=== PATIENT | female | born 1945 | race Caucasian/White ===

== ENCOUNTER 2021-08-13 08:00 | Inpatient (IN) ==
--- NOTE | 2021-02-22 11:54 | PAT Medication Instructions ---
Medication Instructions Date of Service February 22, 2021 Home Medications famotidine 20 mg tablet 20 mg PO QPM levothyroxine 100 mcg capsule 100 mcg PO QAM lisinopril 20 mg tablet 20 mg PO QAM meloxicam 15 mg tablet (Mobic) 15 mg PO QAM metoprolol tartrate 25 mg tablet 25 mg PO QAM pravastatin 40 mg tablet 40 mg PO HS ascorbate calcium-bioflavonoid 1,000 mg-200 mg tablet (Tana-C with Bioflavonoids) 1 tab PO QPM aspirin 81 mg tablet,delayed release 81 mg PO QPM biotin 10,000 mcg capsule 10,000 mcg PO QPM calcium carbonate-vitamin D3 600 mg calcium-200 unit capsule (Calcium 600 + D(3)) 1 cap PO QPM cholecalciferol (vitamin D3) 50 mcg (2,000 unit) capsule (Vitamin D3) 50 mcg PO QAM omega 7-sbd-sdm-fish oil 900 mg-1,400 mg capsule,delayed release 1 cap PO QAM polyethylene glycol 3350 17 gram oral powder packet (Miralax) 17 g PO QPM vitamins A,C,P-hjeh-lteolb 14,320 unit-226 mg-200 unit capsule 1 cap PO QPM ASK your surgeon for instructions meloxicam 15 mg tablet (Mobic) 15 mg PO QAM ASK your prescriber and surgeon aspirin 81 mg tablet,delayed release 81 mg PO QPM STOP taking 2 weeks before surgery vitamins A,C,B-bpxo-hwbkdp 14,320 unit-226 mg-200 unit capsule 1 cap PO QPM omega 5-xgh-atb-fish oil 900 mg-1,400 mg capsule,delayed release 1 cap PO QAM biotin 10,000 mcg capsule 10,000 mcg PO QPM ascorbate calcium-bioflavonoid 1,000 mg-200 mg tablet (Tana-C with Bioflavonoids) 1 tab PO QPM DO NOT take the morning of surgery cholecalciferol (vitamin D3) 50 mcg (2,000 unit) capsule (Vitamin D3) 50 mcg PO QAM lisinopril 20 mg tablet 20 mg PO QAM Take morning of surgery With a small sip of water, OTHERWISE NOTHING TO EAT OR DRINK AFTER MIDNIGHT: metoprolol tartrate 25 mg tablet 25 mg PO QAM levothyroxine 100 mcg capsule 100 mcg PO QAM Take evening before surgery polyethylene glycol 3350 17 gram oral powder packet (Miralax) 17 g PO QPM calcium carbonate-vitamin D3 600 mg calcium-200 unit capsule (Calcium 600 + D(3)) 1 cap PO QPM pravastatin 40 mg tablet 40 mg PO HS famotidine 20 mg tablet 20 mg PO QPM Other Notes If you have any questions please call us at [phone] or [phone] or [phone] or [phone]
--- NOTE | 2021-02-26 13:37 | Anesthesiology Consultation ---
Date of Service February 26, 2021 Assessment & Plan (1) Encounter for pre-operative examination: - Left upper extremity restriction. - Upcoming dental extractions: Extraction of several teeth next week-pt states surgeon's office is aware and advised her can proceed with surgery as planned barring complications. - cardiology visit 01/29/2021: "1. Minimal/nonobstructive by recent cath. Continue current medical therapy. No further testing at this time. 2. HTN/hyper lipidemia: BP is mildly elevated systolically, encouraged to monitor in the ambulatory setting. 3. Pre-op CV exam: She is an acceptable cardiovascular risk for any necessary surgery and does not require further testing." - Case discussed with Dr. Olivo. Outpatient joint assessment: Patient is currently scheduled for inpatient pathway. If re-evaluated pending system levels during current pandemic, patient is acceptable candidate for outpatient joint program from anesthesia standpoint pending surgeon's office assessment of pt motivation/support/completion of same day joint program preop requirements. - COVID screening: Per assessment on 02/26/2021: Travel screen returned from [place] 02/24/2021 drove and visited with two friends-all vaccinated, no known COVID-19 positive contacts or current COVID-19 related symptoms. Patient vaccinated. Surgeon arranging preop COVID testing, scheduled 03/17 [place]. Awaiting results. Chart Review Chart Review: Acceptable Risk for Surgery and Patient seen in Pre Admission Testing Teaching & Discussion Pre-Anesthesia Teaching/Discussion Notes: Instructed NPO after midnight before surgery, except medications with 15 cc of water. Medication instructions provided according to the PAT guidelines. History Surgery Operation Date: 03/23/21 08:50 Proposed Procedures p Right Total Knee Arthroplasty - Jn Tucker DO Height/Weight Height: 5 ft 3.5 in Weight: 92.8 kg Allergies Allergy/AdvReac Type Severity Reaction Status Date / Time Penicillins Allergy Intermediate RASH, ITCHY Verified 02/16/21 15:08 Medications Home Medications Medication Instructions Recorded Confirmed Last Taken famotidine 20 mg tablet 20 mg PO QPM 09/11/19 02/16/21 Unknown levothyroxine 100 mcg capsule 100 mcg PO QAM 09/11/19 02/16/21 Unknown lisinopril 20 mg tablet 20 mg PO QAM 09/11/19 02/16/21 Unknown meloxicam 15 mg tablet (Mobic) 15 mg PO QAM 09/11/19 02/16/21 Unknown metoprolol tartrate 25 mg tablet 25 mg PO QAM 09/11/19 02/16/21 Unknown pravastatin 40 mg tablet 40 mg PO HS 09/11/19 02/16/21 Unknown ascorbate calcium-bioflavonoid 1 tab PO QPM 02/16/21 02/16/21 Unknown 1,000 mg-200 mg tablet (Tana-C with Bioflavonoids) aspirin 81 mg tablet,delayed 81 mg PO QPM 02/16/21 02/16/21 Unknown release biotin 10,000 mcg capsule 10,000 mcg PO QPM 02/16/21 02/16/21 Unknown calcium carbonate-vitamin D3 600 1 cap PO QPM 02/16/21 02/16/21 Unknown mg calcium-200 unit capsule (Calcium 600 + D(3)) cholecalciferol (vitamin D3) 50 50 mcg PO QAM 02/16/21 02/16/21 Unknown mcg (2,000 unit) capsule (Vitamin D3) omega 8-uql-rut-fish oil 900 1 cap PO QAM 02/16/21 02/16/21 Unknown mg-1,400 mg capsule,delayed release polyethylene glycol 3350 17 gram 17 g PO QPM 02/16/21 02/16/21 Unknown oral powder packet (Miralax) vitamins A,C,F-hjpg-kmfmsw 14,320 1 cap PO QPM 02/16/21 02/16/21 Unknown unit-226 mg-200 unit capsule Past Medical History Medical History (Updated 03/01/21 @ 10:34 by Arielle Massey PA-C) Cancer Left breast (2012) s/p left breast lumpectomy > LUE restriction* Cardiac murmur Follows with cardio, echo 2020-mild to moderate aortic and mitral valvular insufficiency-no murmur on exam per cardiology pre-op appointment 01/2021. GERD (gastroesophageal reflux disease) Controlled, sleeps with upper body elevated Hiatal hernia Hyperlipidemia Hypertension controlled Hypothyroidism Mild CAD Mild nonobstructive CAD per Dr. Evans's note Patient denies h/o stroke, seizures, heart attack, heart failure, DM, blood clots or blood transfusions. Exercise / Class Metabolic Activity II 4-5 Yardwork/Stairs/Walk up hill (no CP or SOB with 5 stairs) Past Family History Family History Brother Family history of reaction to anesthesia PONV Past Surgical History Surgical History History of breast biopsy History of cardiac cath 12/08/2020 ([facility]) > no stents History of cholecystectomy History of colonoscopy 2014 History of esophagogastroduodenoscopy (EGD) History of herniorrhaphy History of lumpectomy of left breast LUE restriction* History of tonsillectomy History of total hip arthroplasty RIGHT 1994 History of vein stripping RLE Past Anesthesia History No Hx of Anesthesia Complications and Other (brother with severe PONV) History of PONV No Hx of PONV and No Hx of Motion Sickness Social History Smoking Status: Former smoker Do You Dip or Chew Tobacco: No Smoking End Date: quit 1999 Hx Alcohol Use: Yes Alcohol type: beer and wine alcohol intake frequency: holidays/special occasions only Hx Substance Use: No Review of Systems Patient denies chest pain, shortness of breath, dyspnea on exertion, snoring, witnessed apneas, fever, chills, cough, wheezing, or palpitations. Physical Exam Vital Signs Vitals BP 154/61 P 64 TEMP 97.9 SP02 96% on RA RESP 16 Physical Mildly limited cervical extension ROM without pain Full TMJ range of motion TMD 3.5 finger breaths Mallampati Score 2 Dentition: full upper denture and partial lower denture; denies chipped or loose teeth Lungs: normal respiratory effort. Clear throughout to auscultation, no adventitious breath sounds Cardiac: regular rate and rhythm, no murmurs noted Carotid arteries: negative bruit bilat Extremities: no distal extremity edema Lab Results Anesthesia Preop Results Results Anesthesia Widget: WBC 5.03 K/uL (4.8-10.8) 02/26/21 Hgb 12.6 g/dL (12.0-16.0) 02/26/21 Hct 38.3 % (37-47) 02/26/21 Plt 155 K/uL (130-400) 02/26/21 Na 138 mmol/L (136-145) 02/26/21 K 4.3 mmol/L (3.5-5.1) 02/26/21 Cl 106 mmol/L (98-107) 02/26/21 CO2 26 mmol/L (21-32) 02/26/21 BUN 30 mg/dl (7-18) H 02/26/21 Creat 0.98 mg/dl (0.6-1.2) 02/26/21 Glucose Level 104 mg/dl (70-99) H 02/26/21 PT 10.3 Seconds (9.0-12.0) 02/26/21 PTT 26.2 Seconds (21.0-31.0) 02/26/21 INR 1.0 (0.9-1.1) 02/26/21 Blood Type A Positive 02/26/21 Antibody Screen NEGATIVE 02/26/21 Testing Electrocardiogram Date: 01/29/21 Normal sinus rhythm, rate 61 bpm. RBBB. Left anterior fascicular block. Occasional PACs. This was done at cardiology pre-op appointment from same day. Echocardiogram Date: 10/28/20 EF 55-60%. Normal left ventricular wall motion and ejection fraction. Enlargement of the left atrium. Borderline LVH. Sclerotic changes involving both the aortic and mitral valve leaflets with mitral annular calcification. Mild to moderate aortic and mitral valvular insufficiency. Trace to mild pulmonic and tricuspid valvular insufficiency. Stress Test Date: 10/28/20 Pharmacologic stress test. Abnormal myocardial perfusion with evidence for pharmacologically induced anteroapical ischemia. Normal left ventricular wall motion and thickening. Normal left ventricular EF post stress at 79%. "I did review the results of the stress test with the patient. He [sic] was strongly advised towards aggressive risk factor modification with continued close medical follow up. He [sic] did watch the catheterization film. He was willing to allow further cardiac evaluation including left heart catheterization at [facility] with Dr. Min Jacobs. Cardiac Catheterization Date: 12/08/20 Left main: angiographically normal. LAD: mild atherosclerosis. Cx: mild atherosclerosis. RCA: angiographically normal. Mild nonobstructive coronary artery disease. Normal left ventricular systolic function. Recommendations: Medical therapy and aggressive risk factor modification.
--- NOTE | 2021-08-12 18:03 | History & Physical Report ---
Date of Service August 12, 2021 Assessment & Plan (1) Osteoarthritis of right knee: We will proceed with a right total knee arthroplasty. Postoperatively she will be started on aspirin for DVT prophylaxis and kept overnight in the hospital for postoperative medical management. She plans to go to a rehab facility upon discharge. History of Present Illness Chief Complaint: Osteoarthritis of the right knee. Primary Care Provider: Min Restrepo is a pleasant 75-year-old female who has been dealing with chronic worsening bilateral knee pain. I had seen her in the past and given her injections to the knees. The injections helped a little bit. She is still really struggling with both knees. 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 She cannot go to the store. She cannot enjoy anything with her family. After failing years of conservative treatment, she has elected proceed with a right total knee arthroplasty. Allergies Allergy/AdvReac Type Severity Reaction Status Date / Time Penicillins Allergy Intermediate RASH, ITCHY Verified 08/11/21 11:27 Home Medications Medication Instructions Recorded Confirmed Type famotidine 20 mg tablet 20 mg PO QPM 09/11/19 08/11/21 History levothyroxine 100 mcg capsule 100 mcg PO QAM 09/11/19 08/11/21 History lisinopril 20 mg tablet 20 mg PO QAM 09/11/19 08/11/21 History meloxicam 15 mg tablet (Mobic) 15 mg PO QAM 09/11/19 08/11/21 History metoprolol tartrate 25 mg tablet 25 mg PO QAM 09/11/19 08/11/21 History pravastatin 40 mg tablet 40 mg PO HS 09/11/19 08/11/21 History ascorbate calcium-bioflavonoid 1 tab PO QPM 02/16/21 08/11/21 History 1,000 mg-200 mg tablet (Tana-C with Bioflavonoids) aspirin 81 mg tablet,delayed 81 mg PO QPM 02/16/21 08/11/21 History release biotin 10,000 mcg capsule 10,000 mcg PO QPM 02/16/21 08/11/21 History calcium carbonate 600 mg-vitamin 1 cap PO QPM 02/16/21 08/11/21 History D3 5 mcg (200 unit) capsule (Calcium 600 + D(3)) cholecalciferol (vitamin D3) 50 50 mcg PO QAM 02/16/21 08/11/21 History mcg (2,000 unit) capsule (Vitamin D3) omega 8-cpt-vnh-fish oil 900 1 cap PO QAM 02/16/21 08/11/21 History mg-1,400 mg capsule,delayed release polyethylene glycol 3350 17 gram 17 g PO QPM 02/16/21 08/11/21 History oral powder packet (Miralax) vitamins A,C,W-wlzu-xvlgqh 14,320 1 cap PO QPM 02/16/21 08/11/21 History unit-226 mg-200 unit capsule loratadine 10 mg tablet (Claritin) 10 mg PO QPM 08/03/21 08/11/21 History Past Med/Surg History Medical History Cancer Left breast (2012) s/p left breast lumpectomy > LUE restriction* Cardiac murmur Follows with cardio, echo 2020-mild to moderate aortic and mitral valvular insufficiency-no murmur on exam per cardiology pre-op appointment 01/2021. GERD (gastroesophageal reflux disease) Controlled, sleeps with upper body elevated Hiatal hernia Hyperlipidemia Hypertension controlled Hypothyroidism Mild CAD Mild nonobstructive CAD per Dr. Evans's note Surgical History History of breast biopsy History of cardiac cath 12/08/2020 ([facility]) > no stents History of cholecystectomy History of colonoscopy 2014 History of esophagogastroduodenoscopy (EGD) History of herniorrhaphy History of lumpectomy of left breast LUE restriction* History of tonsillectomy History of total hip arthroplasty RIGHT 1994 History of vein stripping RLE Family History Brother Family history of reaction to anesthesia PONV Social History Smoking Status: Former smoker Second Hand Exposure: No; Hx Alcohol Use: Yes Alcohol type: beer and wine Hx Substance Use: No Preferred Language: Andorran Communication Ability: Effective Airway Controller Required: No Beliefs That Will Affect Care: None Current Living Situation: Alone current occupational status: retired Feels Safe at Home: Yes Assistive Devices: Denture - Upper, Denture - Lower and Glasses Review of Systems All systems reviewed & are unremarkable except as noted in HPI & below. Physical Exam Examination of the right knee, she has range of motion of 0 to 130 degrees. She has no instability. She has tenderness palpation of the distal medial femoral condyle and over the medial joint line.. Constitutional WD/WN, vitals as above Eyes PERRL, conjunctivae normal, anicteric sclerae ENMT external ear and nose normal, oropharynx normal Neck trachea midline, no thyromegaly Respiratory normal respiratory effort Cardiovascular RRR, no murmur, no edema Gastrointestinal (Abdomen) normal bowel sounds, soft, nontender, no hepatosplenomegaly Psychiatric A+Ox3, euthymic affect Results & Data Results & Data Laboratory Results . Diagnostic Findings X-rays of the right knee show advanced osteoarthritis with joint space narrowing osteophyte formation and [id number]-wy-[id number] articulation. PG Care Time/CCT Total # of Minutes Spent Total Time Spent with Patient: Total time spent is greater than 50% in coordination of care (as documented) at patient's floor/unit and/or counseling patient: Coding Level of Care Code None Diagnoses Osteoarthritis of right knee M17.11
[~2021-08-13 08:00] MED LIST: ACETAMINOPHEN 500 MG TAB PO SCH; FAMOTIDINE 20 MG TAB PO SCH; GABAPENTIN 300 MG CAP PO SCH; Ketorolac (*for OR use only*) 30 MG, dexAMETHasone 4 MG, KETAMINE HCL (**OR use only) 1... INFIL SCH; LR 500ML BOLUS, THEN 15ML/HR IV SCH; LR 60ML/HR IV SCH; ROPIVACAINE 0.5% HCL/PF 150 MG, BUPIVACAINE 0.75% MPF 20 ML, EPINEPHrine 30MG/30ML (OR ... INSTIL SCH; TRANEXAMIC ACID 1,000 MG **IV Intra-op IV SCH; TRANEXAMIC ACID 1,000 MG **IV Pre-op IV SCH; ceFAZolin 2000MG 2,000 MG/15 ML SYR IV SCH; dexAMETHasone 4 MG TAB PO SCH
--- NOTE | 2021-08-13 08:11 | History & Physical Bridge Note ---
Date of Service August 13, 2021 History & Physical Bridge Note I have examined the patient, reviewed the History & Physical and in the interval since the performance of the History & Physical I have noted the following changes of clinical significance: no changes noted
[2021-08-13] MEDS ORDERED: fentaNYL citrate 100 MCG/2 ML VIAL ONE (09:17)
[2021-08-13] MEDS ORDERED: LIDOCAINE 2% 2 ML VIAL/AMP(20MG/ML) INFIL ONE (09:17)
[2021-08-13] MEDS ORDERED: ONDANSETRON INJ 2 MG/ML 2 ML VIAL ONE (09:17)
[2021-08-13] MEDS ORDERED: DEXAMETHASONE SOD INJ 4 MG/ML VIAL ONE (09:17)
[2021-08-13] MEDS ORDERED: PROPOFOL IV EMULSION 10 MG/ML 20 ML VIAL IV ONE (09:17)
[2021-08-13] MEDS ORDERED: MIDAZOLAM HCL 1 MG/ML 2ML VIAL ONE (09:17)
[2021-08-13] MEDS ORDERED: ORTHO JOINT ANESTHETIC ONE (09:45)
[2021-08-13] MEDS ORDERED: KETOROLAC 30 MG/ML VIAL IV PRN (10:21)
[2021-08-13] MEDS ORDERED: ONDANSETRON INJ 2 MG/ML 2 ML VIAL IV PRN ×2 (10:21→13:27)
[2021-08-13] MEDS ORDERED: HYDROmorphone INJ 1 MG/ML SYRINGE IV PRN (10:21)
[2021-08-13] MEDS ORDERED: ATROPINE SULFATE 0.1 MG/ML 10ML SYR IV PRN (10:21)
[2021-08-13] MEDS ORDERED: ePHEDrine sulfate 50 MG/ML AMP IV PRN (10:21)
--- NOTE | 2021-08-13 11:30 | Operative Report ---
PG Post Operative Report Pre & Post Diagnosis Operation Date: 06/11/21 09:10 <No data on this case meets the specified criteria> Operation Date: 08/13/21 10:30 Pre-Op Diagnosis: Osteoarthritis of Right Knee Post-Op Diagnosis: Osteoarthritis of Right Knee I identified the patient and participated in the time-out.: Yes Procedure Operation Date: 06/11/21 09:10 <No data on this case meets the specified criteria> Operation Date: 08/13/21 10:30 Actual Procedures p Right Total Knee Arthroplasty(Right) - Jn Tucker DO Surgeon Jn Tucker DO Groover And Striper Operator Jn Yuen PAC Estimated Blood Loss 10 Findings Consistent with Post-Op Diagnosis Specimens Right femoral and tibial bone Complications none Disposition Disposition: Recovery Room Indications Kaye is a pleasant 76-year-old female who is been dealing with chronic increasing right knee pain. X-rays and clinical examination are diagnostic for advanced arthritis of the right knee. After failing conservative treatment, she elected proceed with a right total knee arthroplasty. Description of Procedure Implants used: I used a Javon Persona total knee arthroplasty system with a size 7 standard CR femur, D tibia with a 30 mm stem, 31 oval patella, and a size 10 CPS polyethylene bearing. All components were cemented in place with Biomet cement. Kaye arrived [facility] for the above procedure. She was seen in the preoperative holding area and the operative extremity was identified and signed. She was given a preoperative antibiotic, TXA, a spinal anesthetic a nd an adductor nerve block. She was taken back to the operating room and laid on the table in supine position. She was given basic sedation. The operative knee was then prepped and draped in sterile fashion. A timeout was done, and the patient and the operative extremity was properly identified. A midline incision was made directly over the patella. Dissection was taken down to the extensor mechanism. A subvastus arthrotomy was used. The medial retinaculum was released and the fat pad was mostly excised. The knee was flexed and the ACL, PCL, and meniscus were removed. A drill was sent down the center of the femoral canal followed by an intramedullary vinod. Off that vinod a distal femoral cutting block was placed. 9 mm was resected off the distal femur at 5 of valgus. A posterior referencing AP sizing guide was then placed on the distal femur. The femur measured to be a size 7. 2 drill holes were placed in 3 of external rotation. A 4-in-1 cutting block was then impacted into place. Anterior, posterior, and chamfer cuts were then made. The proximal tibia was then exposed. An external tibial alignment guide was placed. A tibial cut guide was then anchored in place and the proximal tibia was then resected. The posterior aspect of the knee was then opened up and any additional meniscus fragments and osteophytes were removed. The tibia measured to be a size D. The tibial plate was then placed in the appropriate rotation and the tibia was drilled and punched. Trial components were then placed. I used a size 10 CPS polyethylene insert. The knee was broug ht through a full range of motion and felt to be stable. The peg holes for the femoral component were then drilled. The patella was then everted and 9 mm was resected off the posterior aspect of the patella. The patella measured to be a size 31 oval. 3 peg holes were then drilled. A trial patella was placed. The knee was once again brought through a full range of motion and felt to be stable . Trial components were then removed. The surrounding soft tissues were injected with 100 cc of an orthopedic pain control cocktail. All components were then cemented into place with Biomet cement. The final polyethylene insert was then snapped into place. Once cement was dry the tourniquet was deflated. Hemostasis was obtained. A dilute betadyne lavage was then done for 3 minutes. The joint was then irrigated with normal saline solution. The subvastus arthrotomy was then closed with #1 Vicryl suture. The skin was closed with 2-0 Vicryl, 3-0V lock suture, and elroy. A soft compressive dressing was placed. She was then transferred to a hospital bed and taken to the postanesthesia care unit in stable condition. She tolerated the procedure well. Jn Yuen PA-C, was present for the entire procedure. He was critical for patient positioning, prepping, draping, retraction exposure, wound closure and application of sterile dressing. I attest to the content of the Intraoperative Record and any orders documented therein. Any exceptions are noted below.
--- NOTE | 2021-08-13 12:55 | Anesthesiology Progress Note ---
Date of Service August 13, 2021 Anesthesia Post Procedure Vital Signs Vital Signs: Temp Pulse Pulse Resp BP Pulse Ox 08/13/21 12:45 65 14 136/65 92 08/13/21 12:35 62 23 130/59 L 93 08/13/21 12:25 66 18 119/64 96 08/13/21 12:15 77 17 135/61 97 08/13/21 12:05 59 L 22 122/73 97 08/13/21 11:56 36.2 C L 83 23 135/76 96 08/13/21 08:35 36.5 C 69 20 169/58 H 98 Transfer of Care Handoff Completed per policy Notes Mental Status: alert / awake / arousable Patient Amnestic to Procedure: Yes Nausea / Vomiting: adequately controlled Pain: adequately controlled Airway Patency, RR, SpO2: stable & adequate BP & HR: stable & adequate Hydration State: stable & adequate Neuraxial Anesthesia: was administered and sensory block is resolving Anesthetic Complications: no major complications apparent
--- NOTE | 2021-08-13 13:06 | XRay Report ---
RIGHT KNEE 2 VIEWS History: Right total knee arthroplasty. Degenerative arthritis. Postop. FINDINGS: The patient is status post a right total knee arthroplasty. The hardware is intact. No frac ture or dislocation. Skin elroy are in place. IMPRESSION: Right total knee arthroplasty. No evidence for hardware complication. ACT 112: Negative or not required by law. Electronically signed by: Blu Medeiros M.D. 08/13/2021 1:05 PM
[2021-08-13] MEDS ORDERED: NALOXONE HCL 0.4 MG/1 ML VIAL/CARP IV PRN (13:27)
[2021-08-13] MEDS ORDERED: bisacodyL 10 MG SUPP PR PRN (13:27)
[2021-08-13] MEDS ORDERED: METOCLOPRAMIDE HCL INJ 5 MG/ML 2 ML VIAL IV PRN (13:27)
[2021-08-13] MEDS ORDERED: oxyCODONE HCL IR 5 MG TAB (IMMEDIATE RELEASE) PO PRN (13:27)
[2021-08-13] MEDS ORDERED: HYDROmorphone INJ 0.5 MG/0.5 ML SYR IV PRN (13:27)
[2021-08-13] MEDS ORDERED: MAGNESIUM HYDROXIDE SUSP 30 ML UDC PO PRN (13:27)
[2021-08-13] MEDS: SODIUM CHLORIDE 0.9% 1000ML 1,000 ML IV SCH ×2 (13:30→23:56)
[2021-08-13] MEDS: KETOROLAC TROMETHAMINE 15 MG/ML VIAL IV SCH ×2 (15:04→21:08)
[2021-08-13] MEDS: ACETAMINOPHEN 500 MG TAB PO SCH ×2 (15:04→21:08)
[2021-08-13] MEDS ORDERED: PROMETHAZINE HCL 12.5 MG in SODIUM CHLORIDE 0.9% 50 ML IV PRN (17:00)
[2021-08-13] MEDS: ceFAZolin 2000MG 2,000 MG/15 ML SYR IV SCH (17:50)
[2021-08-13] MEDS: PRAVASTATIN SOD 40 MG TAB PO SCH (21:07)
[2021-08-13] MEDS: DOCUSATE SODIUM 100 MG CAP PO SCH (21:07)
[2021-08-13] MEDS: ASPIRIN 81 MG ECTAB PO SCH (21:07)
[2021-08-13] MEDS: LORATADINE 10 MG TAB PO SCH (21:07)
[2021-08-13] MEDS: FAMOTIDINE 20 MG TAB PO SCH (21:07)
[2021-08-13] MEDS: SENNA 8.6 MG TAB PO SCH (21:08)
[2021-08-14] MEDS: ceFAZolin 2000MG 2,000 MG/15 ML SYR IV SCH (02:20)
[2021-08-14] MEDS: KETOROLAC TROMETHAMINE 15 MG/ML VIAL IV SCH ×4 (02:20→20:30)
[2021-08-14] MEDS: LEVOTHYROXINE SODIUM 100 MCG TABLET PO SCH (05:57)
[2021-08-14] MEDS: ACETAMINOPHEN 500 MG TAB PO SCH ×3 (05:57→22:02)
--- NOTE | 2021-08-14 07:59 | Orthopedic Progress Note ---
Date of Service August 14, 2021 Assessment & Plan (1) Status post right knee replacement: Overall she is doing very well. She denies any too much pain in the right knee. She will be seen by physical therapy today for ambulation and range of motion exercises. She is on aspirin for DVT prophylaxis. She does live alone. She was hoping to be discharged to a rehab facility. Case management will work on that today. Her dressing can be changed after physical therapy today. She is orthopedically stable for discharge when a bed becomes available. Nate Restrepo was seen and examined at bedside this morning. Overall she is doing fairly well. She is having too much pain in her right knee. She has been ambulating to the bathroom. She has no complaints. Review of Systems All systems reviewed & are unremarkable except as noted in HPI & below. Physical Exam On physical examination of the right knee, the dressing is clean and dry. She is sitting in a chair at bedside. She is active dorsiflexion and plantarflexion of her right ankle. Results & Data Results & Data Laboratory Results . Diagnostic Findings Postoperative x-rays of the right knee show the prosthesis to be in anatomic alignment without any evidence of fracture, desiccation, or loosening. PG Care Time/CCT Total # of Minutes Spent Total Time Spent with Patient: Total time spent is greater than 50% in coordination of care (as documented) at patient's floor/unit and/or counseling patient: Coding Level of Care Code 87909 Post Operative Follow-Up Diagnoses Status post right knee replacement Z96.651
[2021-08-14] MEDS ORDERED: dexAMETHasone 4 MG TAB PO SCH (08:00)
[2021-08-14] MEDS: DOCUSATE SODIUM 100 MG CAP PO SCH ×2 (08:46→20:29)
[2021-08-14] MEDS: METOPROLOL TARTRATE 25 MG TAB PO SCH (08:47)
[2021-08-14] MEDS: lisinopril 20 MG TAB PO SCH (08:47)
[2021-08-14] MEDS: MULTIVITAMIN TAB PO SCH (08:47)
[2021-08-14] MEDS: ASPIRIN 81 MG ECTAB PO SCH ×2 (08:47→20:30)
[2021-08-14] MEDS: PRAVASTATIN SOD 40 MG TAB PO SCH (20:30)
[2021-08-14] MEDS: FAMOTIDINE 20 MG TAB PO SCH (20:30)
[2021-08-14] MEDS: LORATADINE 10 MG TAB PO SCH (20:31)
[2021-08-14] MEDS: SENNA 8.6 MG TAB PO SCH (20:31)
[2021-08-15] MEDS: KETOROLAC TROMETHAMINE 15 MG/ML VIAL IV SCH ×2 (03:40→09:16)
[2021-08-15] MEDS: ACETAMINOPHEN 500 MG TAB PO SCH ×3 (05:58→20:56)
[2021-08-15] MEDS: LEVOTHYROXINE SODIUM 100 MCG TABLET PO SCH (05:58)
--- NOTE | 2021-08-15 07:05 | Orthopedic Progress Note ---
Date of Service August 15, 2021 Assessment & Plan (1) Status post right knee replacement: Overall she is doing well and happy with her progress. She is on aspirin for DVT prophylaxis. She will be seen by physical therapy again today for ambulation and range of motion exercises. We are currently awaiting insurance authorization for transfer to a rehab facility. She will likely be discharged tomorrow. Nate Restrepo was seen and examined at bedside this morning. Overall she is doing fairly well. She having much pain in the right knee. She participated well yesterday with physical therapy has no complaints. . Review of Systems All systems reviewed & are unremarkable except as noted in HPI & below. Physical Exam On physical examination of the right knee, the dressing is has been changed. The incision is dry and open to air. She is neurovascular intact. . Results & Data Results & Data Laboratory Results . Diagnostic Findings . PG Care Time/CCT Total # of Minutes Spent Total Time Spent with Patient: Total time spent is greater than 50% in coordination of care (as documented) at patient's floor/unit and/or counseling patient: Coding Level of Care Code 68355 Post Operative Follow-Up Diagnoses Status post right knee replacement Z96.651
[2021-08-15] MEDS: METOPROLOL TARTRATE 25 MG TAB PO SCH (09:15)
[2021-08-15] MEDS: ASPIRIN 81 MG ECTAB PO SCH ×2 (09:15→20:56)
[2021-08-15] MEDS: lisinopril 20 MG TAB PO SCH (09:16)
[2021-08-15] MEDS: DOCUSATE SODIUM 100 MG CAP PO SCH ×2 (09:16→20:55)
[2021-08-15] MEDS: MULTIVITAMIN TAB PO SCH (09:16)
[2021-08-15] MEDS: PRAVASTATIN SOD 40 MG TAB PO SCH (20:55)
[2021-08-15] MEDS: LORATADINE 10 MG TAB PO SCH (20:55)
[2021-08-15] MEDS: FAMOTIDINE 20 MG TAB PO SCH (20:55)
[2021-08-15] MEDS: SENNA 8.6 MG TAB PO SCH (20:55)
[2021-08-16] MEDS: LEVOTHYROXINE SODIUM 100 MCG TABLET PO SCH (06:12)
[2021-08-16] MEDS: ACETAMINOPHEN 500 MG TAB PO SCH ×2 (06:12→14:34)
[2021-08-16] MEDS: ASPIRIN 81 MG ECTAB PO SCH (08:35)
[2021-08-16] MEDS: MULTIVITAMIN TAB PO SCH (08:35)
[2021-08-16] MEDS: lisinopril 20 MG TAB PO SCH (08:36)
[2021-08-16] MEDS: DOCUSATE SODIUM 100 MG CAP PO SCH (08:37)
[2021-08-16] MEDS: METOPROLOL TARTRATE 25 MG TAB PO SCH (08:37)
--- NOTE | 2021-08-16 09:14 | Orthopedic Progress Note ---
Date of Service August 16, 2021 Assessment & Plan (1) Status post right knee replacement: Doing well and stable for discharge. She is on aspirin for DVT prophylaxis. She will be seen by physical therapy again today for ambulation and range of motion exercises as well as stair climbing. We are currently awaiting insurance authorization for transfer to a rehab facility vs home with home health. Hopefully will be discharged today. Subjective Doing well today. Pain controlled. No concerns. Doing well with PT. Review of Systems All systems reviewed & are unremarkable except as noted in HPI & below. Physical Exam On physical examination of the right knee, ABD dressing loosely covering incision, dressing is dry. The incision is dry and open to air. She is neurovascular intact. . Results & Data Results & Data Laboratory Results N/A . Diagnostic Findings N/A . PG Care Time/CCT Total # of Minutes Spent Total Time Spent with Patient: Total time spent is greater than 50% in coordination of care (as documented) at patient's floor/unit and/or counseling patient: Coding Level of Care Code 31935 Post Operative Follow-Up Diagnoses Status post right knee replacement Z96.651
--- NOTE | 2021-08-18 06:17 | Discharge Summary ---
Date of Service August 18, 2021 Admission HPI (Per Admitting) Kaye is a pleasant 75-year-old female who has been dealing with chronic worsening bilateral knee pain. I had seen her in the past and given her injections to the knees. The injections helped a little bit. She is still really struggling with both knees. She cannot blind lacer the kitchen for long periods of time to cook. She cannot go to the store. She cannot enjoy anything with her family. After failing years of conservative treatment, she has elected proceed with a right total knee arthroplasty. Admission Exam (Per Admitting) Examination of the right knee, she has range of motion of 0 to 130 degrees. She has no instability. She has tenderness palpation of the distal medial femoral condyle and over the medial joint line.. Principal Diagnosis Same as "Discharge Diagnosis" noted below under Discharge Instructions. Discharge Exam On physical examination of the right knee, ABD dressing loosely covering incision, dressing is dry. The incision is dry and open to air. She is neurovascular intact. . Discharge Data Procedures Performed Operation Date: 06/11/21 09:10 <No data on this case meets the specified criteria> Operation Date: 08/13/21 10:30 Actual Procedures p Right Total Knee Arthroplasty(Right) - Jn Tucker DO Ordered Studies 08/13/21 05:00 US - OR guided needle placemen Routine Hospital Course (1) Status post right knee replacement: On August 13, 2021 Kaye arrived at [facility] and underwent a right knee replacement without complication. She had a spinal anesthetic. Postoperatively she was started on aspirin for DVT prophylaxis and transferred to the general orthopedic floors. Her hospital course was uneventful. On postop day #1 her vital signs were stable and her pain was well controlled. She was able to participate well with physical therapy doing ambulation and range of motion exercises. On postop day #2 she continued to do well. She participated well once again with physical therapy. She was thinking of going to a rehab facility because she lives alone. On postop day #3 she continued to do very well. After discussions with case management, they decided it was best for her to return home with home health. She was then discharged home. She will follow-up with orthopedics in 2 weeks. PG Care Time/CCT Total # of Minutes Spent Total Time Spent with Patient: Total time spent is greater than 50% in coordination of care (as documented) at patient's floor/unit and/or counseling patient: Discharge Plan Discharge Items Patient Disposition: Home - Home Health Services Reason For Visit: Degenerative Joint Disease Discharge Diagnosis: Right knee replacement Activity: As commented below Non-emergency contact: Surgeon Call non-emergency contact if: your wound has increased redness and your wound has increased drainage Follow-up/Referrals: Min Rodriguez [Primary Care Provider] - Jn Tucker DO [Physician] - 08/31/21 1:00 pm Diet: Regular Addtl Attending Provider Instructions: Activity and Therapy Recommendations: * If you are using [facility] then therapy will be provided at your home until they feel you have accomplished all of your goals. * If you are using [facility] then Physical Therapy will be provided until they feel you are ready to start Outpatient Physical Therapy. * If you are not using home therapy then Outpatient Physical Therapy should start about 3-5 days from your day of surgery. Therapy will last about 6-10 weeks * It is important not to put a pillow under your knee when you are relaxing or sleeping. It is just as important to make sure you are getting your knee perfectly straight as it is to regain your knee bend. * You were shown a series of exercises in the hospital. Do these exercises three times each day including the exercises you were shown in physical therapy. * Get up and walk several times each day. For the first four weeks, try not to stand or walk for more than one hour at a time. If you do stand or walk for more than one hour, you will not hurt anything, but your leg will likely swell. * As you feel comfortable, you may change from the walker or crutches to a cane and then to independent walking. Medications: * Narcotic You will likely be sent home from the hospital with a prescription for the narcotic pain medication that worked best throughout your stay. * Aspirin Most patients will be required to take Aspirin 81mg twice a day for 6 weeks after surgery. This is obtained lxsa-hau-siazkzh and a prescription is not necessary. * Other medications may be prescribed for specific circumstances. If you have any questions, please call the office at . * Resume previous home medications unless otherwise instructed TEDs/Elastic Stockings: The white elastic stockings help limit swelling and prevent blood clots from forming in your legs.~ The more you wear them, the more they work. Wear them for six weeks. Dressing Care: The dressing can be changed after physical therapy on postop day #1. Daily dry dressing changes for a few days, especially if the incision is still draining some. If the incision is not draining then you may leave the elroy open to air. If there is a little bit of drainage or if the elroy are getting stuck on your clothing then cover the incision with a dry dressing. The elroy will be removed at your 2 week follow-up appointment. Showering: You may shower 5 days from the day of surgery as long as the incision is no longer draining. You may shower with the elroy exposed. Let soapy water run over the elroy and pat them dry. Do not scrub or soak the incision. Things To Watch For: * Drainage from the incision site that occurs more than one week after your surgery. * Increased redness at the incision site. * Fever above 102 degrees Fahrenheit. * Unusual chest pain or shortness of breath. * Call [facility] at with any of the above problems Follow-Up Visit: Follow-up with Dr. Tucker's PA (Jn Yuen) 2-3 weeks after your day of surgery. He will remove your elroy and answer any questions. If you have any additional questions or concerns, Dr Tucker is usually in the office at the same time and will be available An appointment was probably scheduled when you signed-up for surgery in the office. If you have any questions call Office Instructions: More detailed instructions as well as Frequently Asked Questions were provided in a folder by our office when you signed-up for surgery. Please review these instructions when you get home. If you have any further questions or concerns, please feel free to call the office at [phone] Pending Studies at Discharge: No Stand-Alone Forms: My [employer] [place], Smoking Cessation Medications and DC Order Prescriptions: New oxycodone-acetaminophen 5-325 mg tablet 1 tab PO Q6H PRN (Reason: pain) Qty: 30 RF: 0 Continued loratadine [Claritin] 10 mg tablet 10 mg PO QPM RF: 0 levothyroxine 100 mcg capsule 100 mcg PO QAM RF: 0 pravastatin 40 mg tablet 40 mg PO HS RF: 0 metoprolol tartrate 25 mg tablet 25 mg PO QAM RF: 0 lisinopril 20 mg tablet 20 mg PO QAM RF: 0 meloxicam [Mobic] 15 mg tablet 15 mg PO QAM RF: 0 famotidine 20 mg tablet 20 mg PO QPM RF: 0 polyethylene glycol 3350 [Miralax] 17 gram Powder In Packet 17 g PO QPM RF: 0 biotin 10,000 mcg Capsule 10,000 mcg PO QPM RF: 0 Calcium 600 + D(3) 600 mg calcium- 200 unit Capsule 1 cap PO QPM RF: 0 vitamins A,C,W-tguq-tiuhmo 14,320-226-200 olva-ic-bchr Capsule 1 cap PO QPM RF: 0 cholecalciferol (vitamin D3) [Vitamin D3] 50 mcg (2,000 unit) Capsule 50 mcg PO QAM RF: 0 omega 5-lwf-xml-fish oil 900-1,400 mg Capsule,Delayed Release(Dr/Ec) 1 cap PO QAM RF: 0 Tana-C with Bioflavonoids 1,000-200 mg Tablet 1 tab PO QPM RF: 0 Changed aspirin 81 mg Tablet,Delayed Release (Dr/Ec) 81 mg PO BID 42 Days Qty: 0 RF: 0 Discharge Orders: Discharge Order (Routine); Ordered 08/16/21 Ordered By: Kyrie Argueta/Other Patient Handouts: Knee Replacement Recovery at Home, Knee Replace At Home Exercise Admission Data Admit Date/Time: 08/15/21 07:07 Attending Provider: Jn Tucker Admit Provider: Jn Tucker Primary Care Provider: Min Rodriguez Other Providers: [facility] ; [facility] Other Interventions: Discharge Summary Assessment (RN) Last Done: 08/16/21 16:56
== END 2021-08-16 17:50 | disposition home health service (06) | DRG 470 ==
LOC: 3E 08:00 → ASU 08:00

== ENCOUNTER 2022-01-28 10:07 | Observation (INO) ==
--- NOTE | 2022-01-24 09:59 | Anesthesiology Consultation ---
Date of Service January 24, 2022 Assessment & Plan (1) Encounter for pre-operative examination: Chart Review Chart Review: Acceptable Risk for Surgery and Patient NOT seen in Pre Admission Testing Consults Requested none History Surgery Operation Date: 01/28/22 11:30 Proposed Procedures p Left Total Knee Arthroplasty - Jn Tucker DO Height/Weight Height: 5 ft 3.5 in Weight: 92.533 kg Allergies Allergy/AdvReac Type Severity Reaction Status Date / Time Penicillins Allergy Intermediate RASH, ITCHY Verified 01/21/22 13:49 Medications Home Medications Medication Instructions Recorded Confirmed Last Taken famotidine 20 mg tablet 20 mg PO QPM 09/11/19 01/21/22 08/12/21 19:00 levothyroxine 100 mcg capsule 100 mcg PO QAM 09/11/19 01/21/22 08/13/21 06:30 lisinopril 20 mg tablet 20 mg PO QAM 09/11/19 01/21/22 08/12/21 10:00 meloxicam 15 mg tablet (Mobic) 15 mg PO QAM PRN Pain 09/11/19 01/21/22 08/06/21 metoprolol tartrate 25 mg tablet 25 mg PO QAM 09/11/19 01/21/22 08/13/21 06:30 pravastatin 40 mg tablet 40 mg PO HS 09/11/19 01/21/22 08/12/21 22:00 ascorbate calcium-bioflavonoid 1 tab PO QDL 02/16/21 01/21/22 08/06/21 1,000 mg-200 mg tablet (Tana-C with Bioflavonoids) biotin 10,000 mcg capsule 10,000 mcg PO QDL 02/16/21 01/21/22 08/06/21 calcium carbonate 600 mg-vitamin 1 cap PO QPM 02/16/21 01/21/22 08/12/21 19:00 D3 5 mcg (200 unit) capsule (Calcium 600 + D(3)) cholecalciferol (vitamin D3) 50 50 mcg PO QAM 02/16/21 01/21/22 08/12/21 19:00 mcg (2,000 unit) capsule (Vitamin D3) omega 3-wjw-wti-fish oil 900 1 cap PO QAM 10/26/21 09/30/22 04/15/22 mg-1,400 mg capsule,delayed release polyethylene glycol 3350 17 gram 17 g PO QPM PRN Constipation 02/16/21 01/21/22 08/12/21 19:00 oral powder packet (Miralax) vitamins A,C,B-vest-frnywu 14,320 1 cap PO QPM 02/16/21 01/21/22 08/06/21 unit-226 mg-200 unit capsule loratadine 10 mg tablet (Claritin) 10 mg PO QPM 08/03/21 01/21/22 08/12/21 19:00 oxycodone-acetaminophen 5 mg-325 1 tab PO Q6H PRN pain #30 tabs 08/14/21 01/21/22 Unknown mg tablet aspirin 81 mg tablet,delayed 81 mg PO QAM 01/21/22 01/21/22 Unknown release turmeric 500 mg-black pepper 1 cap PO QAM 01/21/22 01/21/22 Unknown extract 3 mg capsule Past Medical History Medical History Cancer Left breast (2012) s/p left breast lumpectomy > LUE restriction* Cardiac murmur Follows with cardio, echo 2020-mild to moderate aortic and mitral valvular insufficiency-no murmur on exam per cardiology pre-op appointment 01/2021. GERD (gastroesophageal reflux disease) Controlled, sleeps with upper body elevated Hiatal hernia Hyperlipidemia Hypertension controlled Hypothyroidism Mild CAD Mild nonobstructive CAD per Dr. Evans's note Seasonal allergies Past Family History Family History Brother Family history of reaction to anesthesia PONV Past Surgical History Surgical History History of breast biopsy History of cardiac cath 12/08/2020 ([facility]) > no stents History of cholecystectomy History of colonoscopy 2014 History of esophagogastroduodenoscopy (EGD) History of herniorrhaphy History of lumpectomy of left breast LUE restriction* History of tonsillectomy History of total hip arthroplasty RIGHT 1995 History of total knee replacement right History of vein stripping RLE Social History Smoking Status: Former smoker Do You Dip or Chew Tobacco: No Smoking End Date: 2000 Hx Alcohol Use: Yes Alcohol type: wine alcohol intake frequency: a few times a month Hx Substance Use: No substance use type: does not use Testing Electrocardiogram Date: 01/29/21 SR @ 61 bpm RBBB LAFB occasional PACs Echocardiogram Date: 10/28/20 Normal LV wall motion and EF estimated in the range of 55-60% Enlargement of the LA Borderline LVH Sclerotic changes involving both the aortic and mitral valve leaflets with mitral annular calcification Mild to Moderate aortic and mitral valvular insufficiency Trace to mild pulmonic and tricuspid valvular insufficiency
--- NOTE | 2022-01-27 06:31 | History & Physical Report ---
Date of Service January 27, 2022 Assessment & Plan (1) Osteoarthritis of left knee: We will proceed with a left total knee arthroplasty. Postoperatively she will be started on aspirin for DVT prophylaxis and kept overnight for postoperative medical management. She plans to have the hospital set up home health upon discharge. History of Present Illness Chief Complaint: Osteoarthritis of the left knee. Primary Care Provider: Min Restrepo is a pleasant 76-year-old female who has been dealing with chronic increasing left knee pain. She just underwent a right knee replacement in July. She has done very well with that. Unfortunately, she is dealing with a lot of left knee pain. X-rays have shown advanced osteoarthritis of the left knee. After failing conservative treatment, she has elected to proceed with the left total knee arthroplasty. . Allergies Allergy/AdvReac Type Severity Reaction Status Date / Time Penicillins Allergy Intermediate RASH, ITCHY Verified 01/21/22 13:49 Home Medications Medication Instructions Recorded Confirmed Type famotidine 20 mg tablet 20 mg PO QPM 09/11/19 01/21/22 History levothyroxine 100 mcg capsule 100 mcg PO QAM 09/11/19 01/21/22 History lisinopril 20 mg tablet 20 mg PO QAM 09/11/19 01/21/22 History meloxicam 15 mg tablet (Mobic) 15 mg PO QAM PRN Pain 09/11/19 01/21/22 History metoprolol tartrate 25 mg tablet 25 mg PO QAM 09/11/19 01/21/22 History pravastatin 40 mg tablet 40 mg PO HS 09/11/19 01/21/22 History ascorbate calcium-bioflavonoid 1 tab PO QDL 02/16/21 01/21/22 History 1,000 mg-200 mg tablet (Tana-C with Bioflavonoids) biotin 10,000 mcg capsule 10,000 mcg PO QDL 02/16/21 01/21/22 History calcium carbonate 600 mg-vitamin 1 cap PO QPM 02/16/21 01/21/22 History D3 5 mcg (200 unit) capsule (Calcium 600 + D(3)) cholecalciferol (vitamin D3) 50 50 mcg PO QAM 02/16/21 01/21/22 History mcg (2,000 unit) capsule (Vitamin D3) omega 5-jpa-kwy-fish oil 900 1 cap PO QAM 02/16/21 01/21/22 History mg-1,400 mg capsule,delayed release polyethylene glycol 3350 17 gram 17 g PO QPM PRN Constipation 02/16/21 01/21/22 History oral powder packet (Miralax) vitamins A,C,X-wloi-tryudw 14,320 1 cap PO QPM 02/16/21 01/21/22 History unit-226 mg-200 unit capsule loratadine 10 mg tablet (Claritin) 10 mg PO QPM 08/03/21 01/21/22 History oxycodone-acetaminophen 5 mg-325 1 tab PO Q6H PRN pain #30 tabs 08/14/21 01/21/22 Rx mg tablet aspirin 81 mg tablet,delayed 81 mg PO QAM 01/21/22 01/21/22 History release turmeric 500 mg-black pepper 1 cap PO QAM 01/21/22 01/21/22 History extract 3 mg capsule Past Med/Surg History Medical History Cancer Left breast (2012) s/p left breast lumpectomy > LUE restriction* Cardiac murmur Follows with cardio, echo 2020-mild to moderate aortic and mitral valvular insufficiency-no murmur on exam per cardiology pre-op appointment 01/2021. GERD (gastroesophageal reflux disease) Controlled, sleeps with upper body elevated Hiatal hernia Hyperlipidemia Hypertension controlled Hypothyroidism Mild CAD Mild nonobstructive CAD per Dr. Evans's note Seasonal allergies Surgical History History of breast biopsy History of cardiac cath 12/08/2020 ([facility]) > no stents History of cholecystectomy History of colonoscopy 2014 History of esophagogastroduodenoscopy (EGD) History of herniorrhaphy History of lumpectomy of left breast LUE restriction* History of tonsillectomy History of total hip arthroplasty RIGHT 1995 History of total knee replacement right History of vein stripping RLE Family History Brother Family history of reaction to anesthesia PONV Social History Smoking Status: Former smoker Second Hand Exposure: No; Hx Alcohol Use: Yes Alcohol type: wine Hx Substance Use: No Preferred Language: Armenian Communication Ability: Effective Personnel Generalist Manager Required: No Beliefs That Will Affect Care: None Current Living Situation: Alone current occupational status: retired Feels Safe at Home: Yes Assistive Devices: Denture - Upper, Denture - Lower and Glasses Review of Systems All systems reviewed & are unremarkable except as noted in HPI & below. Physical Exam On physical examination of the left knee, she ambulates with a slightly antalgic gait. She is range of motion from 0 to 120 degrees. No instability. Pain over the distal medial femoral condyle.. Constitutional WD/WN, vitals as above Eyes PERRL, conjunctivae normal, anicteric sclerae ENMT external ear and nose normal, oropharynx normal Neck trachea midline, no thyromegaly Respiratory normal respiratory effort, lungs clear to auscultation Cardiovascular RRR, no murmur, no edema Gastrointestinal (Abdomen) normal bowel sounds, soft, nontender, no hepatosplenomegaly Skin no rashes, warm and dry Psychiatric A+Ox3, euthymic affect Results & Data Results & Data Laboratory Results . Diagnostic Findings X-rays of the left knee show advanced osteoarthritis with joint space narrowing, osteophyte formation, and yrgo-ri-xhbp articulation. PG Care Time/CCT Total # of Minutes Spent Total Time Spent with Patient: Total time spent is greater than 50% in coordination of care (as documented) at patient's floor/unit and/or counseling patient: Coding Level of Care Code None Diagnoses Osteoarthritis of left knee M17.12
[~2022-01-28 10:07] MED LIST changes: +BUPIVACAINE 0.5 % 5 MG/1 ML PF 10ML VIAL ONE; -Ketorolac (*for OR use only*) 30 MG, dexAMETHasone 4 MG, KETAMINE HCL (**OR use only) 1... INFIL SCH; +LR 500ML BOLUS IV SCH; -LR 500ML BOLUS, THEN 15ML/HR IV SCH; +ORTHO JOINT MIX INFIL SCH; +ROPIVACAINE 0.5% 5 MG/ML 30 ML VIAL ONE; -ROPIVACAINE 0.5% HCL/PF 150 MG, BUPIVACAINE 0.75% MPF 20 ML, EPINEPHrine 30MG/30ML (OR ... INSTIL SCH
[2022-01-28] MEDS ORDERED: MIDAZOLAM HCL 1 MG/ML 2ML VIAL ONE (11:33)
[2022-01-28] MEDS ORDERED: KETAMINE 50 MG/5 ML SYRINGE ONE (11:33)
[2022-01-28] MEDS ORDERED: ceFAZolin 2,000 MG/15 ML IV PUSH IV ONE (12:29)
[2022-01-28] MEDS ORDERED: Nursing to Pharmacy Communication SCH (12:30)
[2022-01-28] MEDS ORDERED: ORTHO JOINT ANESTHETIC ONE (12:47)
[2022-01-28] MEDS ORDERED: PROMETHAZINE HCL 12.5 MG in SODIUM CHLORIDE 0.9% 50 ML IV PRN (12:55)
[2022-01-28] MEDS ORDERED: fentaNYL citrate 100 MCG/2 ML VIAL IV PRN (12:55)
[2022-01-28] MEDS ORDERED: ATROPINE SULFATE 0.1 MG/ML 10ML SYR IV PRN (12:55)
[2022-01-28] MEDS ORDERED: ePHEDrine sulfate 50 MG/ML AMP IV PRN (12:55)
[2022-01-28] MEDS ORDERED: HYDROmorphone INJ 2 MG/ML SYR/VIAL IV PRN (12:55)
[2022-01-28] MEDS ORDERED: ONDANSETRON INJ 2 MG/ML 2 ML VIAL IV PRN ×2 (12:55→16:36)
--- NOTE | 2022-01-28 13:43 | History & Physical Bridge Note ---
Date of Service January 28, 2022 History & Physical Bridge Note I have examined the patient, reviewed the History & Physical and in the interval since the performance of the History & Physical I have noted the following changes of clinical significance: no changes noted
[2022-01-28] MEDS ORDERED: PROPOFOL IV EMULSION 10 MG/ML 20 ML VIAL IV ONE (13:57)
[2022-01-28] MEDS ORDERED: ONDANSETRON INJ 2 MG/ML 2 ML VIAL ONE (13:57)
[2022-01-28] MEDS ORDERED: ePHEDrine sulfate 50 MG/ML SYR ONE (13:57)
[2022-01-28] MEDS ORDERED: LIDOCAINE 2% MPF LOCAL 5 ML VIAL INFIL ONE (13:57)
[2022-01-28] MEDS ORDERED: DEXAMETHASONE SOD INJ 4 MG/ML VIAL ONE (13:57)
--- NOTE | 2022-01-28 15:03 | Operative Report ---
PG Post Operative Report Pre & Post Diagnosis Operation Date: 01/28/22 12:50 Pre-Op Diagnosis: Osteoarthritis of left knee Post-Op Diagnosis: Osteoarthritis of left knee I identified the patient and participated in the time-out.: Yes Procedure Operation Date: 01/28/22 12:50 Actual Procedures p Left Total Knee Arthroplasty(Left) - Jn Tucker DO Surgeon Jn Tucker DO [employer] Jn Yuen PA-C Estimated Blood Loss 30 Findings Consistent with Post-Op Diagnosis Specimens Left femoral and tibial bone Description of Procedure Implants used: I used a Javon Persona total knee arthroplasty system with a size 8 standard PS femur, E tibia with a 30 mm stem extension, 31 oval patella, and a size 10 medial congruent polyethylene bearing. All components were cemented in place with Biomet cement. Kaye arrived [facility] for the above procedure. She was seen in the preoperative holding area and the operative extremity was identified and signed. She was given a preoperative antibiotic, TXA, a spinal anesthetic and an adductor nerve block. She was taken back to the operating room and laid on the table in supine position. She was given basic sedation. The operative knee was then prepped and draped in sterile fashion. A timeout was done, and the patient and the operative extremity was properly identified. A midline incision was made directly over the patella. Dissection was taken down to the extensor mechanism. A subvastus arthrotomy was used. The medial retinaculum was released and the fat pad was mostly excised. The knee was flexed and the ACL, PCL, and meniscus were removed. A drill was sent down the center of the femoral canal followed by an intramedullary vinod. Off that vinod a distal femoral cutting block was placed. 9 mm was resected off the distal femur at 5 of valgus. A posterior referencing AP sizing guide was then placed on the distal femur. The femur measured to be a size 8. 2 drill holes were placed in 3 of external rotation. A 4-in-1 cutting block was then impacted into place. Anterior, posterior, and chamfer cuts were then made. The proximal tibia was then exposed. An external tibial alignment guide was placed. A tibial cut guide was then anchored in place and the proximal tibia was then resected. The posterior aspect of the knee was then opened up and any additional meniscus fragments and osteophytes were removed. The tibia measured to be a size E. The tibial plate was then placed in the appropriate rotation and the tibia was drilled and punched. Trial components were then placed. I used a size 10 medial congruent polyethylene insert. The knee was brought through a full range of motion and felt to be stable. The peg holes for the femoral component were then drilled. The patella was then everted and 9 mm was resected off the posterior aspect of the patella. The patella measured to be a size 31 oval. 3 peg holes were then drilled. A trial patella was placed. The knee was once again brought through a full range of motion and felt to be stable. Trial components were then removed. The surrounding soft tissues were injected with 100 cc of an orthopedic pain control cocktail. All components were then cemented into place with Biomet cement. The final polyethylene insert was then snapped into place. Once cement was dry the tourniquet was deflated. Hemostasis was obtained. A dilute betadyne lavage was then done for 3 minutes. The joint was then irrigated with normal saline solution. The subvastus arthrotomy was then closed with #1 Vicryl suture. The skin was closed with 2-0 Vicryl, 3-0V lock suture, and elroy. A soft compressive dressing was placed. She was then transferred to a hospital bed and taken to the postanesthesia care unit in stable condition. She tolerated the procedure well. Jn Yuen PA-C, was present for the entire procedure. He was critical for patient positioning, prepping, draping, retraction exposure, wound closure and application of sterile dressing. I attest to the content of the Intraoperative Record and any orders documented therein. Any exceptions are noted below.
--- NOTE | 2022-01-28 15:39 | XRay Report ---
LEFT KNEE 2 VIEWS History: Left total knee arthroplasty. Degenerative arthritis. Postop. FINDINGS: The patient is status post a left total knee arthroplasty. The hardware is intact. No fract ure or dislocation. Skin elroy are in place. IMPRESSION: Left total knee arthroplasty. No evidence for hardware complication. ACT 112: Negative or not required by law. Electronically signed by: Blu Medeiros M.D. 01/28/2022 3:37 PM
--- NOTE | 2022-01-28 16:21 | Anesthesiology Progress Note ---
Date of Service January 28, 2022 Anesthesia Post Procedure Vital Signs Vital Signs: Temp Pulse Resp BP Pulse Ox O2 Del Method O2 Flow Rate 01/28/22 16:10 61 18 140/62 98 Nasal Cannula 2 01/28/22 16:00 36.8 C 67 18 140/61 96 Nasal Cannula 2 01/28/22 15:50 67 18 150/78 H 96 Nasal Cannula 2 01/28/22 15:40 63 17 124/59 L 95 Nasal Cannula 5 01/28/22 15:30 74 18 130/56 L 95 Oxymask 5 01/28/22 15:21 36.9 C 89 18 133/65 97 Oxymask 5 01/28/22 10:35 36.8 C 66 20 156/57 H 100 Room Air Pain Intensity Left Knee: Pain Intensity: 0 Transfer of Care Handoff Completed per policy Notes Mental Status: alert / awake / arousable and participated in evaluation Nausea / Vomiting: adequately controlled Pain: adequately controlled Airway Patency, RR, SpO2: stable & adequate BP & HR: stable & adequate Hydration State: stable & adequate Neuraxial Anesthesia: was administered and sensory block is resolving Anesthetic Complications: no major complications apparent and Pt Satisfied with anesthetic care
[2022-01-28] MEDS ORDERED: NALOXONE HCL 0.4 MG/1 ML VIAL/CARP IV PRN (16:36)
[2022-01-28] MEDS ORDERED: METOCLOPRAMIDE HCL INJ 5 MG/ML 2 ML VIAL IV PRN (16:36)
[2022-01-28] MEDS ORDERED: MAGNESIUM HYDROXIDE SUSP 30 ML UDC PO PRN (16:36)
[2022-01-28] MEDS ORDERED: bisacodyL 10 MG SUPP PR PRN (16:36)
[2022-01-28] MEDS ORDERED: oxyCODONE HCL IR 5 MG TAB (IMMEDIATE RELEASE) PO PRN (16:36)
[2022-01-28] MEDS ORDERED: HYDROmorphone INJ 0.5 MG/0.5 ML SYR IV PRN (16:36)
[2022-01-28] MEDS ORDERED: INFLUENZA VACCINE HIGH DOSE PF 65+ 0.7 ML SYR IM ONE (16:51)
[2022-01-28] MEDS: ALLERGY Noted to ORDERED Medication SCH ×2 (16:57→16:58)
[2022-01-28] MEDS: SODIUM CHLORIDE 0.9% 1000ML 1,000 ML IV SCH (17:24)
[2022-01-28] MEDS: KETOROLAC TROMETHAMINE 15 MG/ML VIAL IV SCH ×2 (17:25→21:49)
[2022-01-28] MEDS: LORATADINE 10 MG TAB PO SCH (21:39)
[2022-01-28] MEDS: DOCUSATE SODIUM 100 MG CAP PO SCH (21:39)
[2022-01-28] MEDS: ASPIRIN 81 MG ECTAB PO SCH (21:39)
[2022-01-28] MEDS: PRAVASTATIN SOD 40 MG TAB PO SCH (21:39)
[2022-01-28] MEDS: SENNA 8.6 MG TAB PO SCH (21:40)
[2022-01-28] MEDS: FAMOTIDINE 20 MG TAB PO SCH (21:40)
[2022-01-28] MEDS: ACETAMINOPHEN 500 MG TAB PO SCH (21:41)
[2022-01-28] MEDS: ceFAZolin 2000MG 2,000 MG/15 ML SYR IV SCH (21:48)
[2022-01-29] MEDS: SODIUM CHLORIDE 0.9% 1000ML 1,000 ML IV SCH (03:04)
[2022-01-29] MEDS: ceFAZolin 2000MG 2,000 MG/15 ML SYR IV SCH (06:00)
[2022-01-29] MEDS: KETOROLAC TROMETHAMINE 15 MG/ML VIAL IV SCH ×5 (06:00→22:44)
[2022-01-29] MEDS: LEVOTHYROXINE SODIUM 100 MCG TABLET PO SCH (06:01)
[2022-01-29] MEDS: ACETAMINOPHEN 500 MG TAB PO SCH ×3 (06:01→22:37)
[2022-01-29] MEDS ORDERED: dexAMETHasone 4 MG TAB PO SCH (08:00)
[2022-01-29] MEDS ORDERED: METOPROLOL TARTRATE 25 MG TAB PO SCH (09:00)
[2022-01-29] MEDS: lisinopril 20 MG TAB PO SCH (09:13)
[2022-01-29] MEDS: ASPIRIN 81 MG ECTAB PO SCH ×2 (09:13→20:18)
[2022-01-29] MEDS: DOCUSATE SODIUM 100 MG CAP PO SCH ×2 (09:13→20:19)
[2022-01-29] MEDS: MULTIVITAMIN TAB PO SCH (09:13)
[2022-01-29] MEDS: METOPROLOL SUCC 25MG EXT REL TAB PO SCH (09:13)
--- NOTE | 2022-01-29 09:13 | Orthopedic Progress Note ---
Date of Service January 29, 2022 Assessment & Plan (1) Status post left knee replacement: Overall she is doing very well. She is not having much pain in the left knee. She will be seen by physical therapy today for ambulation and range of motion exercises. She is on aspirin for DVT prophylaxis. She does live alone. I do want to give her a day in the hospital to make sure that her pain is controlled and she is stable before discharge. Right now we will plan to discharge her to home tomorrow. Nate Restrepo was seen and examined at bedside this morning. Overall she is doing okay. She is not in too much pain in the left knee. She has been up and ambulating to the bathroom. She has no complaints.. Review of Systems All systems reviewed & are unremarkable except as noted in HPI & below. Physical Exam On physical examination of the left knee, the dressing is clean and dry. Her leg is out in full extension. She has active dorsiflexion plantarflexion of the left ankle.. Results & Data Results & Data Laboratory Results . Diagnostic Findings Postoperative x-rays of the left knee show the prosthesis to be in anatomic alignment without any evidence of fracture, desiccation, or loosening. PG Care Time/CCT Total # of Minutes Spent Total Time Spent with Patient: Total time spent is greater than 50% in coordination of care (as documented) at patient's floor/unit and/or counseling patient: Coding Level of Care Code 49485 Post Operative Follow-Up Diagnoses Status post left knee replacement Z96.652
[2022-01-29] MEDS: SENNA 8.6 MG TAB PO SCH (20:18)
[2022-01-29] MEDS: FAMOTIDINE 20 MG TAB PO SCH (20:18)
[2022-01-29] MEDS: LORATADINE 10 MG TAB PO SCH (20:18)
[2022-01-29] MEDS: PRAVASTATIN SOD 40 MG TAB PO SCH (20:19)
[2022-01-30] MEDS: KETOROLAC TROMETHAMINE 15 MG/ML VIAL IV SCH ×2 (05:13→10:57)
[2022-01-30] MEDS: ACETAMINOPHEN 500 MG TAB PO SCH (06:35)
[2022-01-30] MEDS: LEVOTHYROXINE SODIUM 100 MCG TABLET PO SCH (06:35)
--- NOTE | 2022-01-30 07:57 | Orthopedic Progress Note ---
Date of Service January 30, 2022 Assessment & Plan (1) Status post left knee replacement: Overall she is doing very well. She is having much pain in the left knee. She will be seen by physical therapy today for ambulation and range of motion exercises. She is on aspirin for DVT prophylaxis. She can be discharged home later today. She will follow-up with orthopedics in 2 weeks. Nate Restrepo was seen and examined at bedside this morning. Overall she is doing very well. She is not in too much pain in the left knee. She was able to participate well yesterday with therapy. She has no complaints.. Review of Systems All systems reviewed & are unremarkable except as noted in HPI & below. Physical Exam On physical examination of the left knee, the dressing has been changed. Her leg is out in full extension. She is neurovascular intact.. Results & Data Results & Data Laboratory Results . Diagnostic Findings . PG Care Time/CCT Total # of Minutes Spent Total Time Spent with Patient: Total time spent is greater than 50% in coordination of care (as documented) at patient's floor/unit and/or counseling patient: Coding Level of Care Code 70338 Post Operative Follow-Up Diagnoses Status post left knee replacement Z96.652
--- NOTE | 2022-01-30 07:58 | Discharge Summary ---
Date of Service January 30, 2022 Admission HPI (Per Admitting) Kaye is a pleasant 76-year-old female who has been dealing with chronic increasing left knee pain. She just underwent a right knee replacement in July. She has done very well with that. Unfortunately, she is dealing with a lot of left knee pain. X-rays have shown advanced osteoarthritis of the left knee. After failing conservative treatment, she has elected to proceed with the left total knee arthroplasty. . Admission Exam (Per Admitting) On physical examination of the left knee, she ambulates with a slightly antalgic gait. She is range of motion from 0 to 120 degrees. No instability. Pain over the distal medial femoral condyle.. Principal Diagnosis Same as "Discharge Diagnosis" noted below under Discharge Instructions. Discharge Exam On physical examination of the left knee, the dressing has been changed. Her leg is out in full extension. She is neurovascular intact.. Discharge Data Procedures Performed Operation Date: 01/28/22 12:50 Actual Procedures p Left Total Knee Arthroplasty(Left) - Jn Tucker DO Ordered Studies 01/28/22 05:00 US - OR guided needle placemen Routine Hospital Course (1) Status post left knee replacement: On January 28, 2022 Kaye arrived at [facility] and underwent a left knee replacement without complication. She had a spinal anesthetic. Postoperatively she was started on aspirin for DVT prophylaxis and transferred to the general orthopedic floors. Her hospital course was uneventful. On postop day #1, her vital signs were stable and her pain was well controlled. She was able to participate well with therapy doing ambulation and range of motion exercises. On postop day #2, she continued to do well. She was not having much pain in the left knee. She was seen again by therapy and then discharged home. She will follow-up with orthopedics in 2 weeks. PG Care Time/CCT Total # of Minutes Spent Total Time Spent with Patient: Total time spent is greater than 50% in coordination of care (as documented) at patient's floor/unit and/or counseling patient: Discharge Plan Discharge Items Patient Disposition: Home - Home Health Services Reason For Visit: DJD Left Knee Discharge Diagnosis: Left knee replacement Activity: Per Instructions section Non-emergency contact: Surgeon Call non-emergency contact if: your wound has increased redness and your wound has increased drainage Follow-up/Referrals: Min Rodriguez [Primary Care Provider] - Diet: Regular Addtl Attending Provider Instructions: Activity and Therapy Recommendations: * If you are using [facility] then therapy will be provided at your home until they feel you have accomplished all of your goals. * If you are using [facility] then Physical Therapy will be provided until they feel you are ready to start Outpatient Physical Therapy. * If you are not using home therapy then Outpatient Physical Therapy should start about 3-5 days from your day of surgery. Therapy will last about 6-10 weeks * It is important not to put a pillow under your knee when you are relaxing or sleeping. It is just as important to make sure you are getting your knee p erfectly straight as it is to regain your knee bend. * You were shown a series of exercises in the hospital. Do these exercises three times each day including the exercises you were shown in physical therapy. * Get up and walk several times each day. For the first four weeks, try not to stand or walk for more than one hour at a time. If you do stand or walk for more than one hour, you will not hurt anything, but your leg will likely swell. * As you feel comfortable, you may change from the walker or crutches to a cane and then to independent walking. Medications: * Narcotic You will likely be sent home from the hospital with a prescription for the narcotic pain medication that worked best throughout your stay. * Aspirin Most patients will be required to take Aspirin 81mg twice a day for 6 weeks after surgery. This is obtained [id number] and a prescription is not necessary. * Other medications may be prescribed for specific circumstances. If you have any questions, please call the office at . * Resume previous home medications unless otherwise instructed TEDs/Elastic Stockings: The white elastic stockings help limit swelling and prevent blood clots from forming in your legs.~ The more you wear them, the more they work. Wear them for six weeks. Dressing Care: The dressing can be changed after physical therapy on postop day #1. Daily dry dressing changes for a few days, especially if the incision is still draining some. If the incision is not draining then you may leave the elroy open to air. If there is a little bit of drainage or if the elroy are getting stuck on your clothing then cover the incision with a dry dressing. The elroy will be removed at your 2 week follow-up appointment. Showering: You may shower 5 days from the day of surgery as long as the incision is no longer draining. You may shower with the elroy exposed. Let soapy water run over the elroy and pat them dry. Do not scrub or soak the incision. Things To Watch For: * Drainage from the incision site that occurs more than one week after your surgery. * Increased redness at the incision site. * Fever above 102 degrees Fahrenheit. * Unusual chest pain or shortness of breath. * Call [facility] at with any of the above problems Follow-Up Visit: Follow-up with Dr. Tucker's PA (Jn Yuen) 2-3 weeks after your day of surgery. He will remove your elroy and answer any questions. If you have any additional questions or concerns, Dr Tucker is usually in the office at the same time and will be available An appointment was probably scheduled when you signed-up for surgery in the office. If you have any questions call Office Instructions: More detailed instructions as well as Frequently Asked Questions were provided in a folder by our office when you signed-up for surgery. Please review these instructions when you get home. If you have any further questions or concerns, please feel free to call the office at [phone] Pending Studies at Discharge: No Stand-Alone Forms: [facility] Medications and DC Order Prescriptions: Continued loratadine [Claritin] 10 mg tablet 10 mg PO QPM levothyroxine 100 mcg capsule 100 mcg PO QAM pravastatin 40 mg tablet 40 mg PO HS lisinopril 20 mg tablet 20 mg PO QAM meloxicam [Mobic] 15 mg tablet 15 mg PO QAM PRN (Reason: Pain) famotidine 20 mg tablet 20 mg PO QPM polyethylene glycol 3350 [Miralax] 17 gram Powder In Packet 17 g PO QPM PRN (Reason: Constipation) biotin 10,000 mcg Capsule 10,000 mcg PO QDL Calcium 600 + D(3) 600 mg calcium- 200 unit Capsule 1 cap PO QPM vitamins A,C,[id number] Capsule 1 cap PO QPM cholecalciferol (vitamin D3) [Vitamin D3] 50 mcg (2,000 unit) Capsule 50 mcg PO QAM omega 9-yjw-dww-fish oil 900-1,400 mg Capsule,Delayed Release(Dr/Ec) 1 cap PO QAM Tana-C with Bioflavonoids 1,000-200 mg Tablet 1 tab PO QDL turmeric-turmeric ext-pepper 500-3 mg Capsule 1 cap PO QAM metoprolol succinate [Toprol XL] 25 mg Tablet Extended Release 24 Hr 25 mg PO DAILY oxycodone-acetaminophen 5-325 mg tablet 1 tab PO Q6H PRN (Reason: pain) Qty: 30 0RF aspirin 81 mg tablet,delayed release (DR/EC) 81 mg PO BID 42 Days Qty: 0 0RF Discharge Orders: Discharge Order (Routine); Ordered 01/30/22 Ordered By: Jn Tucker Admission Data Admit Date/Time: 01/28/22 15:25 Attending Provider: Jn Tucker Admit Provider: Jn Tucker Primary Care Provider: Min Rodriguez
[2022-01-30] MEDS: ASPIRIN 81 MG ECTAB PO SCH (08:59)
[2022-01-30] MEDS: DOCUSATE SODIUM 100 MG CAP PO SCH (08:59)
[2022-01-30] MEDS: MULTIVITAMIN TAB PO SCH (08:59)
[2022-01-30] MEDS: lisinopril 20 MG TAB PO SCH (09:00)
[2022-01-30] MEDS: METOPROLOL SUCC 25MG EXT REL TAB PO SCH (09:00)
== END 2022-01-30 12:59 | disposition home health service (06) ==
LOC: ASU 10:07 → 3E 10:07